=== PATIENT | female | born 1940 | race Caucasian/White ===

== ENCOUNTER 2022-02-12 00:08 | Emergency (ER) | payer MEDICARE, OTHER, SELFPAY ==
[2022-02-12] VITALS (11 sets, daily range): BP systolic 120–124; BP diastolic 63–74; PULSE 68–83; RESP 13–21; TEMP 36.7; O2SAT 98–100
--- NOTE | ~2022-02-12 | XR_ITS ---
XR chest 2V DATE: 02/12/2022 01:56 INDICATION: Substernal chest pain radiating to back TECHNIQUE: PA and lateral views COMPARISON: 02/12/2022 CTA chest abdomen pelvis FINDINGS: Normal heart size. Aortic arch calcification. The lungs are clear of infiltrate or consolid ation. No pleural effusion or pulmonary vascular congestion or pneumothorax. Large calcified gallstone. Degenerative spurring of the thoracic spine. IMPRESSION: No active cardiopulmonary disease Reviewed, dictated and finalized at location A.
--- NOTE | ~2022-02-12 | CT_ITS ---
EXAMINATION: CTA chest abdomen pelvis DATE: 02/12/2022 03:06 INDICATION: Substernal chest pain radiating to back TECHNIQUE: Computed tomography (CT) of the chest, abdomen, and pelvis was performed without intraveno us contrast. Automated exposure control and iterative reconstruction technique were employed. Exam do se: 1311.32 mGy-cm total exam DLP. COMPARISON: 02/12/2022 PA and lateral chest 01/31/2016 CTA chest FINDINGS: CHEST CT: There are hypoenhancing lesions of both lobes of the thyroid gland, largest on the right measuring [address] examination is timed for optimal visualization of the thoracic aorta. No thoracic aortic aneur ysm or dissection is detected. There is mild thoracic aortic calcification. No pulmonary embolism is evident. No hilar or mediastinal mass lesion or lymphadenopathy. Moderate sliding hiatal hernia. Prominent degenerative disc disease in the lower cervical spine degenerative spurring of the thoracic spine suspicious osteolytic or osteoblastic lesions of the thoracic spine. ABDOMEN/PELVIS CT: Approximately 2.9 cm prominently peripherally calcified gallstone. No gallbladder wall thickening or pericholecystic fluid or fat stranding. No bile duct or pancreatic duct dilatation. Hepatic steatosis. No hepatic, splenic, pancreatic space-occupying mass lesion. Probable small adenomas of each adrenal gland. A few renal cysts are noted, the largest exophytic grace roximately 1.9 cm dimension, situated on the left. No urinary tract calculus or hydroureteronephrosis . The urinary bladder is unremarkable. Uterus and adnexal areas are likewise unremarkable. There is atherosclerotic calcification of the abdominal aorta and at the origins of the celiac and padgett perior mesenteric and renal and inferior mesenteric arteries. No abdominal aortic aneurysm. No intrap eritoneal or retroperitoneal or pelvic mass lesion or adenopathy or ascites. There is a prominent amount of fecal material in the colon. There is diverticulosis of the colon; no CT evidence of diverticulitis. No bowel obstruction, bowel wall thickening, pneumatosis or intraperit marmolejo free air. There is hardware in the proximal left femur. There is degenerative change of the lumbar spine and hi p joints. IMPRESSION: No evidence of thoracic or abdominal aortic aneurysm or dissection Small hiatal hernia Cholelithiasis Hepatic steatosis Probable small bilateral adrenal adenomas Diverticulosis of the colon Reviewed, dictated and finalized at Location A. Reviewed, dictated and finalized at location A.
--- NOTE | 2022-02-12 00:14 | ECG_ITS ---
Measurements Intervals [place] Rate: 69 P: PA: 0 QRS: 22 QRSD: 82 T: 22 QT: 390 QTc: 420 Interpretive Statements SINUS OR ECTOPIC ATRIAL RHYTHM BASELINE ARTIFACT- I, II, AVR, AVL, AVF, V1 BORDERLINE ECG COMPARED TO ECG 09/14/2018 23:49:13 NO SIGNIFICANT CHANGES Electronically Signed On 02-12-2022 7:40:24 CDT by Oumar Rosas D.O.
[2022-02-12 00:29] LABS: Basophils Absolute Auto 0.1 K/mm3 (0.0-0.1); Basophils Percent Auto 1.6 % (0.2-1.2); Eosinophils Absolute Auto 0.6 K/mm3 (0-0.3); Eosinophils Percent Auto 8.6 % (0-4.4); Hematocrit 33.5 % (37.0-47.0); Hemoglobin 10.9 g/dL (12.0-15.0); Immature Granulocyte Absolute 0.02 K/mm3 (0.00-0.031); Immature Granulocyte Percent A 0.3 % (0-0.5); Lymphocytes Absolute Auto 2.53 K/mm3 (0.9-3.2); Lymphocytes Percent Auto 37.6 % (18.3-44.2); Mean Corpuscular HGB Conc 32.5 g/dl (32-36); Mean Corpuscular Hemoglobin 28.2 pg (26-34); Mean Corpuscular Volume 86.8 fl (80-100); Mean Platelet Volume 9.2 fl (7.4-10.4); Monocytes Percent Auto 14.6 % (2.6-8.5); Neutrophils Absolute Auto 2.5 K/mm3 (1.3-6.7); Neutrophils Percent Auto 37.3 % (45.5-73.1); Platelet Count Result 352 k/mm3 (150-375); Red Blood Count 3.86 M/mm3 (4.2-5.4); Red Cell Distribution Width 15.6 % (11.5-14.5); White Blood Count 6.7 K/mm3 (4.5-10.0)
--- NOTE | 2022-02-12 00:32 | ED.CHESTPAIN ---
HPI - Chest Pain General Chief Complaint: Chest Pain Stated Complaint: CHEST PAIN Time Seen by Provider: 02/12/22 00:14 Source: patient, EMS, RN notes reviewed and old records reviewed Mode of arrival: EMS Limitations: no limitations History of Present Illness HPI narrative: This is an 81 year old female who presents for evaluation of chest pain. PAtient was at rest when she developed midsternal chest pain that radiates to her back and her throat. This pain started 1.5 hours ago, and she describes this pain has sharp . Her pain seems to be worse with movement. She denies associated nausea, vomiting, shortness of breath, dizziness or diaphoresis. She states she had physical therapy twice today but she did not have pain with exercising. She denies cardiac history. EMS gave patient 3 baby aspirin because she already have aspirin 81 mg at bed time. She reports her chest pain at its maximum intensity was 7/10 but it has decreased to 4/10. She reports the pain in her back has not improved. MD complaint: chest pain Related Data Allergies Allergy/AdvReac Type Severity Reaction Status Date / Time ciprofloxacin Allergy Severe Swelling Verified 09/11/18 01:08 piroxicam Allergy Unknown Verified 09/11/18 01:08 Review of Systems Review of Systems: All systems reviewed & are unremarkable except as noted in HPI and below Constitutional: Constitutional: Denies chills, Denies fatigue and Denies fever(s) Cardiovascular: Cardiovascular: Reports chest pain Respiratory: Respiratory: Denies chest congestion and Denies cough Gastrointestinal: Gastrointestinal: Denies abdominal pain, Denies nausea and Denies vomiting Musculoskeletal: Musculoskeletal: Reports back pain PMFSH Past Medical History Medical History (Updated 02/12/22 @ 05:20 by Courtney Hernandez MD) Chronic kidney disease Diabetes mellitus Hyperlipidemia Major depressive disorder Surgical History Surgical History (Updated 02/12/22 @ 05:13 by Courtney Hernandez MD) History of knee replacement Social History Social History (Updated 02/12/22 @ 05:14 by Courtney Hernandez MD) Smoking status: Never smoker Exam Const: General: no acute distress and alert Nutritional Appearance: well nourished Orientation/consciousness: patient oriented x3 HENMT: Head: normal to inspection Mouth: Yes Normal oral and palatal mucosa present Eyes: EOM: EOMs intact bilaterally Neck: Neck: normal visual inspection Chest: Other: reproducible midsternal pain Resp: Effort & Inspection: normal respiratory effort Auscultation: clear to auscultation bilaterally Cardio: Rate: regular rate Rhythm: regular rhythm GI: GI Palp: Yes Soft to palpation, No Tenderness to palpation present (GI), No Guarding due to palpation present (GI) and No Rigid due to palpation Auscultation: normal bowel sounds Skin: General skin exam: normal color Neuro: General: patient oriented x3, moves all extremities and CN's II-XI intact bilaterally Psych: Mental Status: mental status grossly normal Affect: normal affect Attitude: cooperative Course Reevaluation(s) Reevaluation #1: PAtient is resting comfortably. She states her chest pain has resolved. her pain may have been GERD. She has large gallstone but labs are normal. CTA did not show PE or aortic etiology. She is stating she is ready for discharge Date: 02/12/22 Time: 05:16 Vital Signs Vital signs: Vital Signs Temperature 98.0 F 02/12/22 00:08 Pulse Rate 68 02/12/22 00:08 Respiratory Rate 15 02/12/22 00:08 Blood Pressure 121/74 02/12/22 00:08 Pulse Oximetry 100 02/12/22 00:08 Oxygen Delivery Room Air 02/12/22 00:08 Temperature 98.0 F 02/12/22 00:08 Pulse Rate 71 02/12/22 04:15 Respiratory Rate 13 02/12/22 04:15 Blood Pressure 124/63 02/12/22 03:46 Pulse Oximetry 100 02/12/22 02:15 Oxygen Delivery Nasal Cannula 02/12/22 00:36 Oxygen Flow Rate 2.0 02/12/22 00:36 MDM - Chest Pain Me
[2022-02-12] MEDS: SODIUM CHLORIDE 0.9% IV 500 ML 999 ML IV CONT (00:38)
[2022-02-12 00:43] LABS: INR 1.1
[2022-02-12 00:45] LABS: Partial Thromboplastin Time 30.2 SECONDS (22.3-36.8)
[2022-02-12 00:46] LABS: Alanine Aminotransferase 20 U/L (6-35); Alkaline Phosphatase 130 U/L (38-126); Anion Gap 14 mmol/L (8-16); Aspartate Amino Transferase 36 U/L (14-36); Bilirubin,Total 0.7 mg/dL (0.2-1.3); Blood Urea Nitrogen 41 mg/dL (7-17); Calcium 9.1 mg/dL (8.4-10.2); Carbon Dioxide 27 mmol/L (22-30); Chloride 98 mmol/L (98-107); Estimated Glomerular Filt Rate 53; Glucose 80 mg/dL (65-110); Lipase 248 U/L (23-300); Potassium 3.9 mmol/L (3.4-5.0); Sodium 139 mmol/L (137-145)
[2022-02-12 00:52] LABS: Troponin I < 0.012 ng/mL (0.000-0.034)
[2022-02-12 03:49] LABS: Troponin I < 0.012 ng/mL (0.000-0.034)
[2022-02-12] MEDS: BELLADONNA ALK/PHENOB ELIX 10 ML, MAG HYDROX/ALUMINUM HYD/SIMETH 30 ML, LIDOCAINE HCL 2... PO (04:03)
--- NOTE | 2022-02-12 05:27 | PC.NURSE ---
called [facility] to request transport. ETA 0900 called [facility] to request transport. will page out
--- NOTE | 2022-02-12 05:44 | PC.NURSE ---
attempted to call report 4 times spoke with front end drupal developer and he told nurses i was trying to call report then called back and transfered call to nurses station and still got voicemail. message left with return number
--- NOTE | 2022-02-12 06:14 | PC.NURSE ---
[facility] here. Cancelled [facility]
== END 2022-02-12 06:19 | disposition home or self-care (01) ==
PROVIDERS: Emergency Provider General Practice; PCP Internal Medicine
DX: R07.89 Other chest pain (principal); E86.0 Dehydration; E11.22 Type 2 diabetes mellitus with diabetic chronic kidney disease; N18.9 Chronic kidney disease, unspecified
CPT/HCPCS: 36415; 71046; 71275; 74174; 80053; 83690; 84484; 85025; 85610; 85730; 93005; 96361; 96374; 99284; A9270; J0131; J7040; Q9967

== ENCOUNTER 2024-09-23 09:39 | Outpatient (CLI) | payer MEDICARE, OTHER, SELFPAY ==
--- NOTE | ~2024-09-23 | MR_ITS ---
EXAMINATION: MR abdomen wo con DATE: 09/23/2024 10:40 INDICATION: Left renal mass TECHNIQUE: Magnetic resonance imaging (MRI) of the abdomen was performed without intravenous contrast . Sequences included coronal T2-weighted SS-FSE, coronal and axial FS 2D-FIESTA, axial STIR FSE, axi al T2-weighted SS-FSE, axial T2-weighted FS SS-FSE, axial diffusion-weighted SE, axial dual-echo T1-w eighted FSPGR, and axial and coronal T1-weighted LAVA. COMPARISON: CT studies dated 02/12/2022 and 07/30/2012 FINDINGS: Arch size is normal. No pericardial or pleural effusion. Moderate-sized sliding-type hiatal hernia. S mall region of magnetic field artifact centered over the subcutaneous tissues at the anterior left lo wer chest, potentially an implantable embroidery worker. 2.9 cm low-attenuation gallstone at the neck o f the otherwise normal-appearing gallbladder. No gallbladder wall thickening or pericholecystic infil trate stranding to suggest acute cholecystitis. Liver is normal with no intrahepatic biliary ductal d ilation. Common bile duct remains normal measuring up to 5 mm maximal diameter with no evident choled ocholithiasis. Pancreas and spleen are normal. No interval change in size of bilateral adrenal nodule s the larger on the left measuring 1.8 cm in maximal diameter. Both nodules demonstrate prominent sig nal dropout on opposed phase imaging consistent with adenomas. 2.2 cm exophytic lesion at the lateral interpolar region of the left kidney with intermediate signal on T1 and T2-weighted imaging and with soft tissue density on the prior CT most likely representing a proteinaceous/hemorrhagic cyst althou gh definitive determination is limited by the absence of intravenous contrast. Visualized portions of bowels are unremarkable with no obstruction. No pathologically enlarged abdominal or upper pelvic ly mphadenopathy. Mild lumbar levocurvature with moderate spondylosis. IMPRESSION: 1. 1.8 cm intermediate attenuation exophytic lesion at the left kidney statistically most likely prot einaceous/hemorrhagic cyst however difficult to absolutely exclude solid neoplasm in the absence of i ntravenous contrast. Recommend pre and postcontrast MRI or CT for more definitive determination. 2. Cholelithiasis. 3. Moderate-sized sliding-type hiatal hernia. Reviewed, dictated and finalized at location A. IMPRESSION: 1. 1.8 cm intermediate attenuation exophytic lesion at the left kidney statisti naomi most likely proteinaceous/hemorrhagic cyst however difficult to absolutel y exclude solid neoplasm in the absence of intravenous contrast. Recommend pre and postcontrast MRI or CT for more definitive determination. 2. Cholelithiasis. 3. Moderate-sized sliding-type hiatal hernia.
== END 2024-09-23 09:40 | disposition home or self-care (01) ==
LOC: MICIMG 09:44
PROVIDERS: Visit Provider Internal Medicine Nephrology
DX: N28.89 Other specified disorders of kidney and ureter (principal); K80.20 Calculus of gallbladder without cholecystitis without obstruction; K44.9 Diaphragmatic hernia without obstruction or gangrene
CPT/HCPCS: 74181

== ENCOUNTER 2024-12-31 14:34 | Outpatient (RCR) | payer MEDICARE, OTHER, SELFPAY ==
[2024-12-17 13:45] VITALS: BMI 37.0
--- NOTE | 2024-12-17 14:18 | WNDPHOTO ---
PHOTO ONLY - See Nursing Notes and/ or assessments for documentation.
--- NOTE | 2024-12-31 14:10 | PCWOUND ---
WOCN NOTE Patient did not show up for appointment.
== END 2025-03-04 11:57 | disposition home or self-care (01) ==
LOC: ANHWOC 14:34
PROVIDERS: Visit Provider Internal Medicine Cardiovascular Disease
DX: S90.912D Unspecified superficial injury of left ankle, subsequent encounter (principal); I10 Essential (primary) hypertension
CPT/HCPCS: 99213; 99215; G0463

== ENCOUNTER 2025-03-03 15:23 | Outpatient (CLI) | payer MEDICARE, OTHER, SELFPAY ==
--- NOTE | ~2025-03-03 | XR_ITS ---
EXAMINATION: XR finger 2nd RT min 2V, 03/03/2025 15:40 CERTIFIED DIABETES EDUCATOR HISTORY: M65.321 - Trigger finger, right index finger COMPARISON: No comparisons available. Findings: No acute fracture or malalignment. Moderate degenerative changes of the distal and proximal interphalangeal joints held in flexion. Soft tissues unremarkable. Impression: No acute fracture or malalignment. Reviewed, dictated and finalized at location P. IFIED DIABETES EDUCATOR Impression: No acute fracture or malalignment.
--- OUTSIDE RECORDS SUMMARY | 2025-03-03 18:02 | XMS_ITS | Clinical Summary ---
Author Organization [facility] Address [address] [place] [address] Care Team Providers Care Felt Dyeing Machine Tender Name Role Phone Unknown, Provider Primary Care Provider Unavaila ble Source Comments [facility],non-owned Affiliates and Associated Physician Practices is amultiple site organization consisting of ambulatory clinics and hospital sitesin [place], [place], [place] and [place]. This disclosure is being madepursuant to the Care Everywhere program and may not contain all information available regarding this patient. Last updated 17.[facility] [employer] Allergies Active Allergy Reactions Criticality Noted Date Comments Ciprofloxacin Rash,Urticaria,Unknown High 12/22/2017 Piroxicam Urticaria,Unknown Medium 12/01/2005 Medications * Be aware that medications may not be up to date on this document. Alwaysverify current medications with the patient. clopidogrel (plaVIX) 75 MG tablet Take 1 (one) tablet by mouth once daily 07/03/2022 Active metFORMIN (Glucophage) 850 MG tablet Take 1 (one) tablet by mouth 2 times daily 06/22/2022 Active atorvastatin (Lipitor) 10 MG tablet Take 1 (one) tablet by mouth once daily 05/19/2022 Active ferrous sulfate 325 (65 FE) MG tablet Take 1 (one) tablet by mouth every 2 days 100 tablet 1 09/08/2022 Active rivastigmine (Exelon) 9.5 MG/24HR patch Apply 1 (one) patch to skin every 24 hours 30 patch 3 09/08/2022 Active Active Problems Problem Noted Date Diagnosed Date Altered mental status, unspe cified altered mental status type 09/07/2022 Vascular dementia with psych otic disturbance, unspecified dementia severity 09/07/2022 Social History Tobacco Use Types Packs/Day Years Used Date Smoking Tobacco: Never Tobacco Cessation:Counseling Given: Not Answered Alcohol Use Standard Drinks/Week Comments Never 0 (1 standard drink = 0.6 oz pur e alcohol) AUDIT-C Answer Date Recorded Q1: How often do you have a drink containing alcohol? Never 09/08/2022 Q2: How many drinks containi ng alcohol do you have on a typical day when you are drinking? Patient does not drink Q3: How often do you have si x or more drinks on one occasion? Never 09/08/2022 Comments Unknown Sex and Gender Information Value Date Recorded Sex Assigned at Not on file Legal Sex Female 6:32 PM [employer] Gender Identity Not on file Sexual Orientation Not on file Last Filed Vital Signs Vital Sign Reading Time Taken Comments Blood Pressure 157/73 09/08/2022 11:15 AM CDT Pulse 59 09/08/2022 11:15 AM CDT Temperature 36 C (96.8 F) 09/08/2022 11:15 AM CDT Respiratory Rate 15 09/08/2022 11:15 AM CDT Oxygen Saturation 98% 09/08/2022 11:15 AM CDT Inhaled Oxygen Concentration - - Weight 83.5 kg (184 lb) 09/06/2022 5:17 PM CDT Height 157.5 cm (5' 2) 09/06/2022 5:17 PM CDT Body Mass Index 33.65 09/06/2022 5:17 PM CDT Plan of Treatment Health Maintenance Due Date Last Done Comments BONE DENSITY TESTING 1940 MEDICARE AWV 12 MONTHS 1940 DTAP/TDAP/TD VACCINES (1 - Tdap) 1957 PNEUMOCOCCAL VACCINE 50+ (1 of 1 - PCV) 1988 ZOSTER VACCINE (1 of 2) 1988 Respiratory Syncytial Virus (RSV) Vaccine Pt: or over 60 yrs (1 - 1-dose 75+ series) 2013 DEPRESSION SCREENING 04/10/2024 COVID-19 VACCINE ( - season) 2024 06/07/2021, 06/07/2021, 06/14/2020, Additional history exists INFLUENZA VACCINE (#1) 2024 2, 03/16/2021, 12/14/2018, Additional history exists HEPATITIS B VACCINE Aged Out No longe r eligible based on patient's age to complete this topic HIB VACCINE Aged Out No longer eligi ble based on patient's age to complete this topic HPV VACCINE Aged Out No longer eligi ble based on patient's age to complete this topic MENINGOCOCCAL (Group B) VACCINE SHARED DECISION-MAKING Aged Out No longer eligible based on patient's age to complete this topic MENINGOCOCCAL GROUPS A/C/Y/W VACCINE Aged Out No longer eligible based on patient's age to complete this topic Insurance MEDICARE [facility] Advance Directives * Full Code (Latest Code Status on File) Date Activated Date Inactivated Comments 09/07/2022 3:27 AM 09/08/2022 4:47 PM Care Teams Felt Dyeing Machine Tender Relationship Specialty Start Date End Date Unknown, Provider PCP - General 09/07/22
--- OUTSIDE RECORDS SUMMARY | 2025-03-03 18:02 | XMS_ITS | Clinical Summary ---
Author Organization [facility] Address [address] [place] [address] Care Team Providers Care Grout Machine Operator Name Role Phone Gregory Hernandez MD Primary Care Provider + Allergies Active Allergy Reactions Criticality Noted Date Comments Ciprofloxacin Rash Low 09/24/2022 Piroxicam Rash Low 09/24/2022 Medications rivastigmine (EXELON) 9.5 MG/24HR Place 1 patch (9.5 mg total) onto the skin daily. Active Active Problems Problem Noted Date Diagnosed Date Atrial fibrillation with RVR 09/24/2022 Social History Tobacco Use Types Packs/Day Years Used Date Smoking Tobacco: Former Cigarettes Q uit: 1976 Smokeless Tobacco: Never Tobacco Cessation:Counseling Given: No Humiliation, Afraid, Rape, and Kick questionnair e Answer Date Recorded Within the last year, have y ou been afraid of your partner or ex-partner? No 09/25/2022 Within the last year, have y ou been humiliated or emotionally abused in other ways by your partner or ex-partner? No Within the last year, have y ou been kicked, hit, slapped, or otherwise physically hurt by your partner or ex-partner? No 09/25/2022 Within the last year, have y ou been raped or forced to have any kind of sexual activity by your partner or ex-partner? No 09/25/2022 Overall Financial Resource Strain (CARDIA) Answe r Date Recorded How hard is it for you to pa y for the very basics like food, housing, medical care, and heating? Very hard 09/25/2022 Hunger Vital Sign Answer Date Recorded Within the past 12 months, y ou worried that your food would run out before you got the money to buy more. Never true 09/26/19 23 Within the past 12 months, t he food you bought just didn't last and you didn't have money to get more. Never true 09/25/2022 PRAPARE - Transportation Answer Date Re corded In the past 12 months, has l ack of transportation kept you from medical appointments or from getting medications? No 09/08 In the past 12 months, has l ack of transportation kept you from meetings, work, or from getting things needed for daily living? No 09/25/2022 Housing Stability Vital Sign Answer Emmanuel e Recorded In the last 12 months, was t here a time when you were not able to pay the mortgage or rent on time? No 09/25/2022 In the last 12 months, how many places have you lived? 1 09/25/2022 In the last 12 months, was t here a time when you did not have a steady place to sleep or slept in a fci (including now)? No 09/25/2022 Comments Unknown Sex and Gender Information Value Date Recorded Sex Assigned at Not on file Legal Sex Female 5:06 PM CDT Gender Identity Not on file Sexual Orientation Not on file Last Filed Vital Signs Vital Sign Reading Time Taken Comments Blood Pressure 125/50 09/29/2022 8:21 AM CDT Pulse 54 09/29/2022 8:21 AM CDT Temperature 36.6 C (97.9 F) 09/29/2022 8:21 AM CDT Respiratory Rate 16 09/29/2022 8:21 AM CDT Oxygen Saturation 98% 09/29/2022 8:21 AM CDT Inhaled Oxygen Concentration - - Weight 89 kg (196 lb 3.4 oz) 09/29/2022 4:19 AM CDT Height 157.5 cm (5' 2) 09/25/2022 5:15 PM CDT Body Mass Index 35.89 09/25/2022 5:15 PM CDT Plan of Treatment Health Maintenance Due Date Last Done Comments Zoster Vaccines (1 of 2) 1988 03/22/2018 Annual Medicare Wellness Visit 10/26/2003 RSV Immunization or 60+ Years (1 - 1-dose 75+ series) 2013 COVID-19 Vaccine ( season) 2024 06/07/2021, 06/07/2021, 06/14/2020, Additional history exists Influenza Adult (#1) 2025 02/08/2022, 12/14/2018, 01/27/2018, Additional history exists DTaP, Tdap and Td Vaccines (2 - Td or Tdap) 04/10/2025 04/10/2015 Pneumococcal Vaccine: 50+ Years Completed 04/11/2018, 12/07/2006 Hepatitis A Vaccines Aged Out No long er eligible based on patient's age to complete this topic Meningococcal B Vaccine Aged Out No l onger eligible based on patient's age to complete this topic Meningococcal Vaccine Aged Out No rc gisela eligible based on patient's age to complete this topic RSV Immunizations Under 20 Months Aged Out No longer eligible based on patient's age to complete this topic Goals Goal Patient Goal Type Associated Problems Recent Progress Patient-Stated? Author Family - family caregiver with be involved in care transitions and discharge planning Lifestyle No Nicol Knox, RN Insurance MEDICARE [facility] [employer] Advance Directives * Full Code (Latest Code Status on File) Date Activated Date Inactivated Comments 09/24/2022 11:18 PM 09/29/2022 4:06 PM Care Teams Grout Machine Operator Relationship Specialty Start Date End Date Gregory Hernandez MD [address] [place] [address] PCP - General PATHOLOGY 09/24/22
== END 2025-03-03 15:24 | disposition home or self-care (01) ==
PROVIDERS: Visit Provider Plastic Surgery
DX: M65.321 Trigger finger, right index finger (principal)
CPT/HCPCS: 73140